=== PATIENT | female | born 1960 | race African-American/Black ===

== ENCOUNTER 2017-09-16 11:05 | Emergency (ER) | payer OTHER, SELFPAY ==
[2017-09-16] MEDS ORDERED: Acetaminophen 500 MG TAB ONE (12:00)
[2017-09-16] MEDS ORDERED: Ketorolac Tromethamine 60 MG/2 ML VIAL ONE (12:00)
--- NOTE | 2017-09-16 12:58 | RAD ---
LUMBAR SPINE THREE VIEWS: History: Back pain. Injury. Comparison: None. FINDINGS: Five non-rib bearing lumbar type vertebrae. There is severe endplate sclerosis at T12, likely osteoph yte formation and less likely a fracture. Mild degenerative disc space height loss at L4-5. Moderate facet arthropathy at L3-4, L4-5, and L5-S1. IMPRESSION: 1. No acute fracture or malalignment. 2. Moderate facet arthropathy, lower lumbar spine. 3. Mild degenerative disc space height loss, L4-5 and L5-S1. 4. No listhesis. POS: OFF
== END 2017-09-16 13:09 | disposition home or self-care (01) ==
LOC: ERS 11:05
DX: S39.012A Strain of muscle, fascia and tendon of lower back, initial encounter (principal); I10 Essential (primary) hypertension; Z87.891 Personal history of nicotine dependence; X50.9XXA Other and unspecified overexertion or strenuous movements or postures, initial encounter
CPT/HCPCS: 72100; 96372; J1885

== ENCOUNTER 2017-10-23 07:34 | Emergency (ER) | payer OTHER | END 2017-10-23 07:55 | disposition home or self-care (01) | LOC: ERS 07:34 | DX: S96.911A Strain of unspecified muscle and tendon at ankle and foot level, right foot, initial encounter (principal); I10 Essential (primary) hypertension; Z87.891 Personal history of nicotine dependence; X50.0XXA Overexertion from strenuous movement or load, initial encounter | CPT/HCPCS: 99283 ==

== ENCOUNTER 2018-10-19 14:24 | Outpatient (CLI) | payer OTHER ==
--- NOTE | 2018-10-19 15:08 | MMO ---
Bilateral MAMMO Bilat Screen [facility]. CLINICAL HISTORY: Patient is 58 years old and is seen for screening. The patient has the following family history of breast cancer: maternal grandmother, at age 70. The patient has no personal history of cancer. VIEWS: The views performed were: bilateral craniocaudal with tomosynthesis and bilateral mediolateral oblique with tomosynthesis. FILMS COMPARED: The present examination has been compared to prior imaging studies performed at [facility] on 03/15/2010, 12/30/2011 and 02/06/2014. MAMMOGRAM FINDINGS: There are scattered fibroglandular densities. There are vascular calcifications seen in both breasts. There are no suspicious masses, suspicious calcifications, or new areas of architectural distortion. IMPRESSION: A ROUTINE FOLLOW-UP MAMMOGRAM IN 1 YEAR IS RECOMMENDED. THE RESULTS OF THIS EXAM WERE SENT TO THE PATIENT. ACR BI-RADS Category 2 - Benign finding MAMMOGRAPHY NOTE: 1. A negative mammogram report should not delay a biopsy if a dominant of clinically suspicious mass is present. 2. Approximately 10% to 15% of breast cancers are not detected by mammography. 3. Adenosis and dense breasts may obscure an underlying neoplasm.
== END 2018-10-19 14:25 | disposition home or self-care (01) ==
LOC: BICMAMMO 14:24
PROVIDERS: ATTEND Nurse Practitioner Family
DX: Z12.31 Encounter for screening mammogram for malignant neoplasm of breast (principal); Z80.3 Family history of malignant neoplasm of breast
CPT/HCPCS: 77063; 77067

== ENCOUNTER 2020-03-31 21:55 | Emergency (ER) | payer BC, SELFPAY ==
[2020-03-31 22:15] LABS: Bilirubin Negative (Negative); Blood, Urine Negative (Negative); Clarity Clear (Clear); Glucose, Urine (Dipstick) Normal (Negative); Ketone, Urine Negative (Negative); Leukocyte Negative Leu/uL (Negative); Nitrite Negative (Negative); Protein, Urine (Dipstick) Negative (Neg-Trace); Specific Gravity, Urine 1.012 (1.002-1.036); Urobilinogen Normal mg/dL (Less than 2)
[2020-03-31 23:13] LABS: #Basophils 0.1 thou/uL (0.0-0.2); #Eosinphils 0.4 thou/uL (0.0-0.7); #Lymphocytes 1.7 thou/uL (1.20-3.40); #Monocytes 0.6 thou/uL (0.11-0.59); #Neutrophils 3.5 thou/uL (1.40-6.50); %Basophils 0.9 % (0.0-1.0); %Eosinophils 6.3 % (0.0-10.0); %Lymphocytes 27.3 % (21.0-51.0); %Monocytes 9.9 % (0.0-10.0); %Neutrophils 55.7 % (42.0-75.0); Hemoglobin 12.5 g/dL (12.0-16.0); Mean Corpuscular HGB CONC 32.7 g/dL (32.0-36.0); Mean Corpuscular Hemoglobin 28.7 pg (27.0-31.0); Mean Corpuscular Volume 87.6 fL (78.0-98.0); Mean Platelet Volume 9.1 fL (7.4-10.4); Platelet Count 257 thou/uL (130-400); RBC Distribution Width 12.4 % (11.5-14.5); Red Blood Cell (RBC) Count 4.37 mill/uL (4.20-5.40); White Blood Cell (WBC) Count 6.3 thou/uL (4.8-10.8)
[2020-03-31 23:32] LABS: ALT (SGPT) 23 U/L (8-55); AST (SGOT) 17 U/L (5-34); Albumin 3.9 g/dL (3.5-5.0); Alkaline Phosphatase 96 U/L (40-110); Anion Gap 14 mmol/L (10-20); BUN (Urea Nitrogen) 20 mg/dL (9.8-20.1); Bilirubin, Total 0.4 mg/dL (0.2-1.2); Calc. Creatinine Clearance 0 mL/min (70-130); Calcium 8.8 mg/dL (7.8-10.44); Carbon Dioxide 23 mmol/L (22-29); Chloride 108 mmol/L (98-107); Estimated GFR-MDRD 88; Globulin 3.2 g/dL (2.4-3.5); Glucose 94 mg/dL (70-105); Lipase 16 U/L (8-78); Protein, Total 7.1 g/dL (6.0-8.3); Sodium 141 mmol/L (136-145)
[2020-04-01] MEDS ORDERED: Lidocaine Viscous Sol 2% 15 ml UD Cup ONE (01:37)
[2020-04-01] MEDS ORDERED: Mag-Al 1200 mg/1200 mg/30 ML UDCUP ONE (01:37)
== END 2020-04-01 02:08 | disposition home or self-care (01) ==
LOC: ERS 21:55
DX: K27.9 Peptic ulcer, site unspecified, unspecified as acute or chronic, without hemorrhage or perforation (principal); I10 Essential (primary) hypertension; Z87.891 Personal history of nicotine dependence; Z79.899 Other long term (current) drug therapy
CPT/HCPCS: 36415; 80053; 81003; 82274; 83690; 84484; 85025; 93005